=== PATIENT | male | born 1980 | race Caucasian/White ===

== ENCOUNTER 2021-09-25 17:27 | Emergency (ER) | payer BC, SELFPAY ==
[2021-09-25 17:49] VITALS: BP 132/84; PULSE 88; RESP 16; TEMP 37.4; O2SAT 99
--- NOTE | 2021-09-25 18:07 | ED.ANIMALBIT ---
HPI - Animal Bite General Chief Complaint: Animal Bite Stated Complaint: dog bite Time Seen by Provider: 09/25/21 18:08 Source: patient Mode of arrival: ambulatory Limitations: no limitations History of Present Illness HPI narrative: 41 y/o male presented for c/o dog bite to right lateral/posterior upper thigh. No open wounds. States the neighbor's dog ran up to him while he was fixing a fence near their yard. Unsure tetanus status. Police report filed. Related Data Home Medications Medication Instructions Recorded Confirmed No Home Medications 09/25/21 09/25/21 Allergies Allergy/AdvReac Type Severity Reaction Status Date / Time No Known Allergies Allergy Verified 09/25/21 18:06 Review of Systems Review of Systems: CONSTITUTIONAL: Denies body aches, fever, chills, or sweats. EYES: Denies visual changes, redness, or discharge. ENT: Denies rhinorrhea, congestion CARDIOVASCULAR: Denies chest pain, palpitations, or edema. RESPIRATORY: Denies cough or dyspnea. GASTROINTESTINAL: Denies abdominal pain, nausea, vomiting, or diarrhea. SKIN: bruising from dog bite MUSCULOSKELETAL: Denies back pain, joint pain, or myalgia. NEUROLOGIC: Denies numbness, tingling, or weakness. PMFSH Comments At time of signature, I have reviewed and agree with nursing past medical, surgical, social and family history unless otherwise noted. Please see nursing chart for further information. There is no relevant family history pertinent to the presenting complaint Exam Narrative: GENERAL: Well-appearing HEAD: Normocephalic, atraumatic. EYES: conjunctivae clear, and EOMI. CHEST: Clear to auscultation. HEART: Regular rate and rhythm. SKIN: Warm, dry. Right posterior/lateral upper thigh with hematoma approx 6cm diameter, raised, tender; superficial abrasion noted NEURO: Alert and oriented x3. Course Course Emergency Course: Patient is aware of diagnosis, understands and agrees to treatment plan. Anticipatory guidance given. Patient agrees to follow-up as directed and is aware of reasons to seek care at the emergency department. Portions of this record may have been created with voice recognition software Level of Care: Express Care Visit Vital Signs Vital signs: Vital Signs Temperature 99.3 F 09/25/21 17:49 Pulse Rate 88 09/25/21 17:49 Respiratory Rate 16 09/25/21 17:49 Blood Pressure 132/84 09/25/21 17:49 Pulse Oximetry 99 09/25/21 17:49 Oxygen Delivery Room Air 09/25/21 17:49 Temperature 99.3 F 09/25/21 17:49 Pulse Rate 88 09/25/21 17:49 Respiratory Rate 16 09/25/21 17:49 Blood Pressure 132/84 09/25/21 17:49 Pulse Oximetry 99 09/25/21 17:49 Oxygen Delivery Room Air 09/25/21 17:49 Reviewed MDM - Animal Bite MDM Narrative Medical decision making narrative: Pt requesting tetanus updated today. No open wounds, will defer abx. Advised supportive measures and instructions on hematoma, and signs/symptoms to go to the ER. Pt is appropriate for outpt treatment and f/u. Differential Diagnosis Differential diagnosis: Likely dog bite Discharge Plan Discharge Clinical Impression: Dog bite, Hematoma Patient Disposition: Home, Self-Care Condition: Stable Instructions: Antibiotic Form Additional Instructions: Apply ice to the site 15 minute intervals at least 3 times a day Expect the bruising to flatten and spread down the leg Watch for worsening pain, swelling, fever; go to the ER for any concerns Tetanus updated today. Prescriptions: No Action No Home Medications Follow-up/Referrals: Ronnell,Gary Ward MD [Primary Care Provider] - Time of Disposition: 18:17
[2021-09-25] MEDS: TETANUS,DIPHTHERIA,AC PERTUSSIS ADULT (0.5 ML) BOOSTRIX IM (18:30)
== END 2021-09-25 18:20 | disposition home or self-care (01) ==
PROVIDERS: Emergency Provider Nurse Practitioner Family; PCP Family Medicine
DX: S70.11XA Contusion of right thigh, initial encounter (principal); W54.0XXA Bitten by dog, initial encounter; Z23 Encounter for immunization
CPT/HCPCS: 90471; 90715; 99202; G0463